=== PATIENT | female | born 1940 | race Caucasian/White ===

== ENCOUNTER → 2016-10-07 | Outpatient (CLI) | payer MEDICARE, BC, OTHER ==
--- NOTE | 2016-10-07 16:05 | REPMRS ---
Patient History The patient states she had a clinical breast exam in 09/2016. Patient is postmenopausal. Family history of colorectal cancer in maternal cousin at age 50 or over. Took hormonal contraceptives for 4 years. Taking unspecified hormones for 12 years. Digital Woman Screen Mammo: October 07, 2016 - Exam #: [id number] Bilateral CC and MLO view(s) were taken. Technologist: Rosaline Bowers, Technologist Prior study comparison: October 06, 2015, digital woman screen mammo performed at [email or web address]. September 16, 2014, digital woman screen mammo performed at [email or web address]. FINDINGS: There are scattered fibroglandular densities. There has been no change in the appearance of the mammogram from the prior studies. There is a mild amount of residual fibroglandular tissue which is fairly symmetric. There is no interval development of dominant mass, architectural distortion, or clustered microcalcification suggestive of malignancy. ASSESSMENT: BI-RADS/ACR category 1 mammogram. Negative. Recommendation Routine screening mammogram in 1 year (for women over age 40). This mammogram was interpreted with the aid of an FDA-approved computer-aided dectection system. Electronically Signed By: Arsenio Cavanaugh MD 10/07/16 [id number]
== END ==
LOC: M WHC 12:51
PROVIDERS: ATTEND Obstetrics & Gynecology
DX: Z12.31 Encounter for screening mammogram for malignant neoplasm of breast (principal); Z78.0 Asymptomatic menopausal state; Z92.0 Personal history of contraception

== ENCOUNTER → 2017-10-03 | Outpatient (REF) | payer MEDICARE, OTHER ==
[2017-10-03 11:52] LABS: HEMATOCRIT 37.7 % (36.0-47.0); HEMOGLOBIN 12.3 g/dl (12.0-15.5); MEAN CORPUSCULAR HEMOGLOBIN 31.1 pg (27.0-33.0); MEAN CORPUSCULAR HGB CONC 32.6 g/dl (32.0-36.5); MEAN CORPUSCULAR VOLUME 95.2 fl (80.0-96.0); PLATELET COUNT, AUTOMATED 301 10^3/uL (150-450); RED BLOOD COUNT 3.96 10^6/uL (4.00-5.40); RED CELL DISTRIBUTION WIDTH 12.6 % (11.5-14.5); WHITE BLOOD COUNT 6.5 10^3/uL (4.0-10.0)
[2017-10-03 12:15] LABS: TOTAL 25(OH) VITAMIN D 43.7 NG/ML (30.0-100.0)
[2017-10-03 12:21] LABS: ALBUMIN 3.7 GM/DL (3.2-5.2); ALBUMIN/GLOBULIN RATIO 1.09 (1.00-1.93); ALKALINE PHOSPHATASE 78 U/L (45-117); ALT/SGPT 21 U/L (12-78); ANION GAP 8 MEQ/L (8-16); AST/SGOT 21 U/L (7-37); BILIRUBIN,TOTAL 0.4 MG/DL (0.2-1.0); BLOOD UREA NITROGEN 15 MG/DL (7-18); CALCIUM LEVEL 8.7 MG/DL (8.8-10.2); CARBON DIOXIDE LEVEL 27 MEQ/L (21-32); CHLORIDE LEVEL 106 MEQ/L (98-107); CREATININE FOR GFR 0.72 MG/DL (0.55-1.30); FREE T4 1.03 NG/DL (0.76-1.46); GLOMERULAR FILTRATION RATE > 60.0 (>39); GLUCOSE, FASTING 84 MG/DL (70-100); SODIUM LEVEL 141 MEQ/L (136-145); THYROID STIMULATING HORMONE 0.973 uIU/ML (0.358-3.740); TOTAL PROTEIN 7.1 GM/DL (6.4-8.2)
== END ==
LOC: M SFHCCLAY 08:38
DX: I47.1 Supraventricular tachycardia (principal); K21.9 Gastro-esophageal reflux disease without esophagitis; D64.9 Anemia, unspecified; M81.0 Age-related osteoporosis without current pathological fracture
CPT/HCPCS: 84443

== ENCOUNTER → 2017-10-13 | Outpatient (CLI) | payer MEDICARE, BC | LOC: M WHC 11:49 | DX: Z12.31 Encounter for screening mammogram for malignant neoplasm of breast (principal); Z78.0 Asymptomatic menopausal state; Z79.890 Hormone replacement therapy; Z92.0 Personal history of contraception | CPT/HCPCS: 77067 ==

== ENCOUNTER → 2018-11-25 | Outpatient (REF) | payer MEDICARE, OTHER ==
[2018-11-25 11:30] LABS: IONIZED CALCIUM 4.6 MG/DL (4.5-5.3)
[2018-11-25 12:05] LABS: ALBUMIN 3.7 GM/DL (3.2-5.2); ALT/SGPT 24 U/L (12-78); BILIRUBIN,TOTAL 0.5 MG/DL (0.2-1.0); BLOOD UREA NITROGEN 16 MG/DL (7-18); CALCIUM LEVEL 8.8 MG/DL (8.8-10.2); CARBON DIOXIDE LEVEL 28 MEQ/L (21-32); CHLORIDE LEVEL 106 MEQ/L (98-107); CREATININE FOR GFR 0.72 MG/DL (0.55-1.30); FREE T4 0.97 NG/DL (0.76-1.46); GLOMERULAR FILTRATION RATE > 60.0 (>39); GLUCOSE, FASTING 97 MG/DL (70-100); POTASSIUM SERUM 4.3 MEQ/L (3.5-5.1); PTH INTACT 61.4 PG/ML (18.5-88.0); SODIUM LEVEL 139 MEQ/L (136-145); TOTAL PROTEIN 7.1 GM/DL (6.4-8.2)
[2018-11-26 12:12] LABS: ALBUMIN 4.39 GM/DL (3.29-5.55); ALBUMIN % 61.8 % (55.8-66.1); ALPHA-1-GLOBULIN % 3.5 % (2.9-4.9); ALPHA-1-GLOBULINS 0.25 GM/DL (0.17-0.41); ALPHA-2-GLOBULINS 0.81 GM/DL (0.42-0.99); ALPHA-2-GLOBULINS % 11.4 % (7.1-11.8); BETA-1-GLOBULINS 0.43 GM/DL (0.28-0.60); BETA-1-GLOBULINS % 6.1 % (4.7-7.2); BETA-2-GLOBULINS 0.29 GM/DL (0.19-0.55); BETA-2-GLOBULINS % 4.1 % (3.2-6.5); GAMMA GLOBULIN % 13.1 % (11.1-18.8); GAMMA GLOBULINS 0.93 GM/DL (0.65-1.58)
== END ==
LOC: M SFHCCLAY 07:58
PROVIDERS: ATTEND Family Medicine
DX: M81.0 Age-related osteoporosis without current pathological fracture (principal); Z79.899 Other long term (current) drug therapy

== ENCOUNTER → 2019-01-13 | Outpatient (REF) | payer MEDICARE, OTHER ==
[2019-01-14 12:02] LABS: BLOOD UREA NITROGEN 16 MG/DL (7-18); CALCIUM LEVEL 9.1 MG/DL (8.8-10.2); CARBON DIOXIDE LEVEL 27 MEQ/L (21-32); CHLORIDE LEVEL 106 MEQ/L (98-107); CREATININE FOR GFR 0.78 MG/DL (0.55-1.30); GLOMERULAR FILTRATION RATE > 60.0 (>39); GLUCOSE, FASTING 108 MG/DL (70-100); POTASSIUM SERUM 4.1 MEQ/L (3.5-5.1); SODIUM LEVEL 140 MEQ/L (136-145)
[2019-01-14 12:03] LABS: BASO # 0.1 10^3/uL (0.0-0.2); BASO % 0.7 % (0.0-1.0); EOS # 0.1 10^3/uL (0.0-0.50); EOS % 1.9 % (0.0-3.0); HEMATOCRIT 37.9 % (36.0-47.0); HEMOGLOBIN 12.7 g/dl (12.0-15.5); LYMPH # 2.4 10^3/uL (1.5-4.5); LYMPH % 35.4 % (24.0-44.0); MEAN CORPUSCULAR HEMOGLOBIN 32.6 pg (27.0-33.0); MEAN CORPUSCULAR HGB CONC 33.5 g/dl (32.0-36.5); MEAN CORPUSCULAR VOLUME 97.2 fl (80.0-96.0); MONO # 0.4 10^3/uL (0.0-0.8); MONO % 6.4 % (0.0-5.0); NEUTROPHILS # 3.8 10^3/uL (1.8-7.7); NEUTROPHILS % 55.2 % (36.0-66.0); PLATELET COUNT, AUTOMATED 276 10^3/uL (150-450); WHITE BLOOD COUNT 6.9 10^3/uL (4.0-10.0)
== END ==
LOC: M LABDRAWC 11:13
PROVIDERS: ATTEND Internal Medicine Cardiovascular Disease
DX: I47.1 Supraventricular tachycardia (principal); Z95.0 Presence of cardiac pacemaker

== ENCOUNTER → 2019-10-26 | Outpatient (REF) | payer MEDICARE, OTHER ==
[2019-10-26 18:53] LABS: HEMATOCRIT 38.5 % (36.0-47.0); HEMOGLOBIN 12.5 g/dl (12.0-15.5); MEAN CORPUSCULAR HEMOGLOBIN 31.2 pg (27.0-33.0); MEAN CORPUSCULAR HGB CONC 32.5 g/dl (32.0-36.5); PLATELET COUNT, AUTOMATED 257 10^3/uL (150-450); RED BLOOD COUNT 4.01 10^6/uL (4.00-5.40); WHITE BLOOD COUNT 7.1 10^3/uL (4.0-10.0)
[2019-10-26 19:23] LABS: ALBUMIN 3.9 GM/DL (3.2-5.2); ALT/SGPT 28 U/L (12-78); BILIRUBIN,TOTAL 0.4 MG/DL (0.2-1.0); BLOOD UREA NITROGEN 13 MG/DL (7-18); CALCIUM LEVEL 8.7 MG/DL (8.8-10.2); CARBON DIOXIDE LEVEL 26 MEQ/L (21-32); CHLORIDE LEVEL 107 MEQ/L (98-107); CHOLESTEROL LEVEL 232 MG/DL (<200); CHOLESTEROL RISK RATIO 3.362 (<5); CREATININE FOR GFR 0.73 MG/DL (0.55-1.30); GLOMERULAR FILTRATION RATE > 60.0 (>39); GLUCOSE, FASTING 98 MG/DL (70-100); HDL CHOLESTEROL 69 MG/DL (>40); LDL CHOLESTEROL 137 MG/DL (<100); NON-HDL-C 163 MG/DL; POTASSIUM SERUM 4.1 MEQ/L (3.5-5.1); SODIUM LEVEL 143 MEQ/L (136-145); THYROID STIMULATING HORMONE 0.909 uIU/ML (0.358-3.740); TOTAL PROTEIN 7.1 GM/DL (6.4-8.2); TRIGLYCERIDES LEVEL 131 MG/DL (<150)
== END ==
LOC: M SFHCCLAY 08:50
PROVIDERS: ATTEND Family Medicine
DX: M81.0 Age-related osteoporosis without current pathological fracture (principal); K21.9 Gastro-esophageal reflux disease without esophagitis; I47.1 Supraventricular tachycardia; D64.9 Anemia, unspecified; E78.00 Pure hypercholesterolemia, unspecified

== ENCOUNTER → 2019-11-05 | Outpatient (CLI) | payer MEDICARE, BC ==
--- NOTE | 2019-11-05 17:00 | REPMRS ---
Patient History The patient states she had a clinical breast exam in October 2019.The patient states she had a clinical breast exam in November 2019.Family history of colorectal cancer at age 50 or over in maternal cousin. Took hormonal contraceptives for 4 years. Taking unspecified hormones for 13 years. 3D TOMOSYNTHESIS WAS PERFORMED. [facility] lifetime risk for breast cancer is 3.0%. VOLPARA DENSITY C. Digital Woman Screen Mammo: November 05, 2019 - Exam #: [id number] Bilateral CC and MLO view(s) were taken. Technologist: Evy Watts, Technologist Prior study comparison: October 19, 2018, bilateral digital mammo screening bilat, performed at [facility]. October 13, 2017, digital woman screen mammo performed at [facility]. FINDINGS: The breast tissue is heterogeneously dense. This may lower the sensitivity of mammography. There has been no change in the appearance of the mammogram from the prior studies. There is a moderate amount of residual fibroglandular tissue which is fairly symmetric. There is no interval development of dominant mass, areas of architectural distortion, or clustered microcalcification typical of malignancy. Assessment: BI-RADS/ACR category 1 mammogram. Negative Mammogram. Recommendation Routine screening mammogram in 1 year (for women over age 40). This mammogram was interpreted with the aid of an FDA-approved computer-aided dectection system. Electronically Signed By: Arsenio Cavanaugh MD 11/05/19 [id number]
== END ==
LOC: M WHC 14:19
PROVIDERS: ATTEND Obstetrics & Gynecology
DX: Z12.31 Encounter for screening mammogram for malignant neoplasm of breast (principal)

== ENCOUNTER → 2020-02-10 | Outpatient (CLI) | payer MEDICARE, BC, OTHER | LOC: M LABSMTC 11:47 | PROVIDERS: ATTEND Family Medicine | DX: Z20.828 Contact with and (suspected) exposure to other viral communicable diseases (principal) | CPT/HCPCS: C9803; U0003 ==

== ENCOUNTER → 2020-11-15 | Outpatient (REF) | payer MEDICARE, OTHER ==
[2020-11-15 11:55] LABS: HEMATOCRIT 40.9 % (36.0-47.0); HEMOGLOBIN 13.1 g/dl (12.0-15.5); MEAN CORPUSCULAR HEMOGLOBIN 30.9 pg (27.0-33.0); MEAN CORPUSCULAR VOLUME 96.5 fl (80.0-96.0); PLATELET COUNT, AUTOMATED 264 10^3/uL (150-450); RED BLOOD COUNT 4.24 10^6/uL (4.00-5.40)
[2020-11-15 12:53] LABS: ALT/SGPT 19 U/L (12-78); BILIRUBIN,TOTAL 0.4 MG/DL (0.2-1.0); BLOOD UREA NITROGEN 14 MG/DL (7-18); CALCIUM LEVEL 8.6 MG/DL (8.8-10.2); CARBON DIOXIDE LEVEL 28 MEQ/L (21-32); CHLORIDE LEVEL 108 MEQ/L (98-107); CREATININE FOR GFR 0.64 MG/DL (0.55-1.30); FREE T4 1.04 NG/DL (0.76-1.46); GLOMERULAR FILTRATION RATE > 60.0 (>39); GLUCOSE, FASTING 91 MG/DL (70-100); IRON (FE) 81 UG/DL (50-170); PERCENT SATURATION 20.7 % (13.2-45.0); POTASSIUM SERUM 3.9 MEQ/L (3.5-5.1); PTH INTACT 58.9 PG/ML (18.5-88.0); SODIUM LEVEL 140 MEQ/L (136-145); TOTAL IRON BINDING CAPACITY 391 UG/DL (250-450); TOTAL PROTEIN 7.3 GM/DL (6.4-8.2)
== END ==
LOC: M SFHCCLAY 09:01
PROVIDERS: ATTEND Family Medicine
DX: M81.0 Age-related osteoporosis without current pathological fracture (principal); D64.9 Anemia, unspecified; K21.9 Gastro-esophageal reflux disease without esophagitis; I47.1 Supraventricular tachycardia

== ENCOUNTER → 2021-01-15 | Outpatient (CLI) | payer MEDICARE, BC ==
--- NOTE | 2021-01-15 10:46 | REPMRS ---
Patient History The patient states she had a clinical breast exam in November 2020. Patient is postmenopausal. Family history of colorectal cancer at age 50 or over in maternal cousin. Took hormonal contraceptives for 4 years. Taking estrogen for 20 years. No breast complaints today Patient signed the MRS sheet 1st covid vaccine 07/02/20-right arm-Pfizer 2nd covid vaccine 07/23/20-left arm Patient states she has lost at least 10lbs since her last mammo [facility] on PACS Patient Identification Verified Digital Woman Screen Mammo: January 15, 2021 - Exam #: [id number] Bilateral CC and MLO view(s) were taken. Technologist: Selma Enciso, Technologist Prior study comparison: November 05, 2019, bilateral digital woman screen mammo performed at [facility]. October 19, 2018, bilateral digital mammo screening bilat, performed at [facility]. FINDINGS: There are scattered fibroglandular densities. Screening. Digital screening (2D) mammography was performed bilaterally in the CC and MLO projections. Additionally, breast tomosynthesis (3D mammography) was performed bilaterally in the CC and MLO projections. Todays exam was compared to the prior exam/exams. By history, the patient has no complaints of a palpable breast abnormality or other significant breast complaints. The breasts are unchanged in size and shape. There are no flory-soft tissue densities or spiculated masses. There is no internal architectural distortion. Once again, stable benign appearing calcifications are seen.There are no suspicious flory-calcific clusters. Skin thickening or nipple retraction is not present. IMPRESSION: BI-RADS Category 2- Benign Findings. There is no evidence of malignant alteration of the breasts. Followup examination recommended in one year. The Volpara volumetric breast density category is B, there are scattered areas of fibroglandular densities. This mammogram was read with the assistance of [employer],an FDA approved computer aided detection system for mammography. The lifetime Tyrer-Cuzick score is 2.6 % Negative x-ray reports should not delay surgical consultation if a dominant or clinically suspicious mass is present. Not all breast cancers can be identified by mammography. Therefore, we recommend that you continue to perform regular breast self-examination and physical examination and then promptly contact your physician of any concerns or changes. Adenosis and dense breasts may obscure an underlying neoplasm. Assessment: BI-RADS/ACR category 2 mammogram. Benign Findings. Recommendation Routine screening mammogram of both breasts in 1 year. Electronically Signed By: Juan Yap DO 01/15/21 [id number]
== END ==
LOC: M WHC 09:22
PROVIDERS: ATTEND Obstetrics & Gynecology
DX: Z12.31 Encounter for screening mammogram for malignant neoplasm of breast (principal); Z92.3 Personal history of irradiation

== ENCOUNTER → 2021-03-06 | Outpatient (REF) | payer MEDICARE, OTHER ==
[2021-03-06 14:39] LABS: HEMATOCRIT 38.9 % (36.0-47.0); HEMOGLOBIN 12.6 g/dl (12.0-15.5); MEAN CORPUSCULAR HEMOGLOBIN 30.9 pg (27.0-33.0); MEAN CORPUSCULAR HGB CONC 32.4 g/dl (32.0-36.5); MEAN CORPUSCULAR VOLUME 95.3 fl (80.0-96.0); PLATELET COUNT, AUTOMATED 238 10^3/uL (150-450); RED BLOOD COUNT 4.08 10^6/uL (4.00-5.40); WHITE BLOOD COUNT 5.2 10^3/uL (4.0-10.0)
[2021-03-06 16:54] LABS: BLOOD UREA NITROGEN 11 MG/DL (7-18); CALCIUM LEVEL 9.3 MG/DL (8.8-10.2); CARBON DIOXIDE LEVEL 27 MEQ/L (21-32); CHLORIDE LEVEL 108 MEQ/L (98-107); CREATININE FOR GFR 0.66 MG/DL (0.55-1.30); GLOMERULAR FILTRATION RATE > 60.0 (>32); GLUCOSE, FASTING 94 MG/DL (70-100); LDH LACTATE DEHYDROGENASE 181 U/L (84-246); POTASSIUM SERUM 4.1 MEQ/L (3.5-5.1); SODIUM LEVEL 141 MEQ/L (136-145)
[2021-03-06 17:01] LABS: TOTAL 25(OH) VITAMIN D 45.5 NG/ML (30.0-100.0); VITAMIN B12 LEVEL 515 PG/ML (247-911)
[2021-03-06 17:02] LABS: FOLATE 19.3 NG/ML (>5.4)
== END ==
LOC: M SFHCCLAY 10:08
PROVIDERS: ATTEND Family Medicine
DX: M81.0 Age-related osteoporosis without current pathological fracture (principal); K90.0 Celiac disease; K21.9 Gastro-esophageal reflux disease without esophagitis; K22.70 Barrett's esophagus without dysplasia; E83.51 Hypocalcemia; D75.89 Other specified diseases of blood and blood-forming organs; Z23 Encounter for immunization
CPT/HCPCS: 80048; 82306; 82607; 82746; 83615; 85027; 85046; 90471; 90715; G0463

== ENCOUNTER → 2021-09-19 | Outpatient (REF) | payer MEDICARE, OTHER ==
[2021-09-19 16:16] LABS: BASO # 0.1 10^3/uL (0.0-0.2); BASO % 1.1 % (0.0-1.0); EOS # 0.1 10^3/uL (0.0-0.5); EOS % 2.6 % (0.0-3.0); HEMATOCRIT 39.4 % (36.0-47.0); HEMOGLOBIN 12.9 g/dl (12.0-15.5); LYMPH # 1.9 10^3/uL (1.5-5.0); LYMPH % 36.5 % (24.0-44.0); MEAN CORPUSCULAR HEMOGLOBIN 31.5 pg (27.0-33.0); MEAN CORPUSCULAR HGB CONC 32.7 g/dl (32.0-36.5); MEAN CORPUSCULAR VOLUME 96.3 fl (80.0-96.0); MONO # 0.5 10^3/uL (0.0-0.8); MONO % 9.1 % (2.0-8.0); NEUTROPHILS # 2.7 10^3/uL (1.5-8.5); NEUTROPHILS % 50.5 % (36.0-66.0); PLATELET COUNT, AUTOMATED 264 10^3/uL (150-450); RED BLOOD COUNT 4.09 10^6/uL (4.00-5.40); WHITE BLOOD COUNT 5.3 10^3/uL (4.0-10.0)
[2021-09-19 16:37] LABS: ALBUMIN 4.3 GM/DL (3.2-5.2); ALT/SGPT 23 U/L (12-78); BILIRUBIN,TOTAL 0.4 MG/DL (0.2-1.0); BLOOD UREA NITROGEN 12 MG/DL (7-18); CALCIUM LEVEL 9.3 MG/DL (8.8-10.2); CARBON DIOXIDE LEVEL 27 MEQ/L (21-32); CHLORIDE LEVEL 109 MEQ/L (98-107); CHOLESTEROL LEVEL 232 MG/DL (<200); CHOLESTEROL RISK RATIO 3.012 (<5); CREATININE FOR GFR 0.68 MG/DL (0.55-1.30); GLOMERULAR FILTRATION RATE > 60.0 (>32); GLUCOSE, FASTING 105 MG/DL (70-100); HDL CHOLESTEROL 77 MG/DL (>40); LDL CHOLESTEROL 130 MG/DL (<100); NON-HDL-C 155 MG/DL; POTASSIUM SERUM 4.2 MEQ/L (3.5-5.1); SODIUM LEVEL 140 MEQ/L (136-145); TOTAL PROTEIN 7.2 GM/DL (6.4-8.2); TRIGLYCERIDES LEVEL 124 MG/DL (<150)
[2021-09-19 16:45] LABS: PTH INTACT 43.6 PG/ML (18.5-88.0); TOTAL 25(OH) VITAMIN D 41.5 NG/ML (30.0-100.0)
[2021-09-19 16:46] LABS: FOLATE 17.6 NG/ML (>5.4)
[2021-09-25 18:13] LABS: VITAMIN B12 LEVEL 541 PG/ML (247-911)
== END ==
LOC: M SFHCCLAY 09:46
PROVIDERS: ATTEND Family Medicine
DX: M54.31 Sciatica, right side (principal); K21.00 Gastro-esophageal reflux disease with esophagitis, without bleeding; E78.00 Pure hypercholesterolemia, unspecified; D75.89 Other specified diseases of blood and blood-forming organs; M81.0 Age-related osteoporosis without current pathological fracture

== ENCOUNTER 2021-11-27 13:00 | Outpatient (RCR) | payer MEDICARE, BC, OTHER | END 2021-11-29 | LOC: M PT 13:00 | PROVIDERS: ATTEND Orthopaedic Surgery | DX: M54.50 Low back pain, unspecified (principal); M25.551 Pain in right hip ==

== ENCOUNTER → 2022-01-16 | Outpatient (CLI) | payer MEDICARE, BC, OTHER | LOC: M WHC 10:10 | PROVIDERS: ATTEND Obstetrics & Gynecology | DX: Z12.31 Encounter for screening mammogram for malignant neoplasm of breast (principal) ==

== ENCOUNTER → 2022-04-18 | Outpatient (REF) | payer MEDICARE, OTHER ==
[2022-04-18 21:34] LABS: FREE T4 1.26 NG/DL (0.89-1.76); THYROID STIMULATING HORMONE 0.819 uIU/ML (0.55-4.78)
== END ==
LOC: M SFHCCLAY 11:08
PROVIDERS: ATTEND Family Medicine
DX: R41.89 Other symptoms and signs involving cognitive functions and awareness (principal); E07.9 Disorder of thyroid, unspecified

== ENCOUNTER → 2022-04-30 | Outpatient (CLI) | payer MEDICARE, BC, OTHER | LOC: M RAD 10:02 | PROVIDERS: ATTEND Family Medicine | DX: G31.9 Degenerative disease of nervous system, unspecified (principal); R41.89 Other symptoms and signs involving cognitive functions and awareness ==

== ENCOUNTER → 2022-10-01 | Outpatient (REF) | payer MEDICARE, OTHER ==
[2022-10-01 14:25] LABS: CHOLESTEROL RISK RATIO 2.66 (<5); HDL CHOLESTEROL 76.1 MG/DL (>40); LDL CHOLESTEROL 106.7 MG/DL (<100); NON-HDL-C 126.9 MG/DL
[2022-10-01 14:29] LABS: FREE T4 1.11 NG/DL (0.89-1.76); THYROID STIMULATING HORMONE 1.188 uIU/ML (0.55-4.78)
== END ==
LOC: M SFHCCLAY 11:52
PROVIDERS: ATTEND Family Medicine
DX: R41.89 Other symptoms and signs involving cognitive functions and awareness (principal); E78.00 Pure hypercholesterolemia, unspecified

== ENCOUNTER → 2022-10-01 | Outpatient (REF) | payer MEDICARE, BC, OTHER ==
[2022-10-01 12:12] LABS: BASO # 0.1 10^3/uL (0.0-0.2); BASO % 0.9 % (0.0-1.0); EOS # 0.2 10^3/uL (0.0-0.5); EOS % 3.8 % (0.0-3.0); HEMATOCRIT 40.2 % (36.0-47.0); HEMOGLOBIN 12.8 g/dl (12.0-15.5); LYMPH # 2.2 10^3/uL (1.5-5.0); LYMPH % 38.1 % (24.0-44.0); MEAN CORPUSCULAR HEMOGLOBIN 30.7 pg (27.0-33.0); MEAN CORPUSCULAR HGB CONC 31.8 g/dl (32.0-36.5); MEAN CORPUSCULAR VOLUME 96.4 fl (80.0-96.0); MONO # 0.5 10^3/uL (0.0-0.8); NEUTROPHILS # 2.8 10^3/uL (1.5-8.5); NEUTROPHILS % 48.7 % (36.0-66.0); PLATELET COUNT, AUTOMATED 259 10^3/uL (150-450); RED BLOOD COUNT 4.17 10^6/uL (4.00-5.40); WHITE BLOOD COUNT 5.7 10^3/uL (4.0-10.0)
[2022-10-01 12:51] LABS: BLOOD UREA NITROGEN 15 MG/DL (9-23); CALCIUM LEVEL 9.1 MG/DL (8.3-10.6); CARBON DIOXIDE LEVEL 30 MMOL/L (20-31); CHLORIDE LEVEL 104 MMOL/L (98-107); GLOMERULAR FILTRATION RATE > 60.0 (>32); GLUCOSE, FASTING 98 MG/DL (74-106); POTASSIUM SERUM 3.8 MMOL/L (3.5-5.1); SODIUM LEVEL 139 MMOL/L (136-145)
== END ==
LOC: M LABDRAWC 11:23
PROVIDERS: ATTEND Internal Medicine Cardiovascular Disease
DX: I45.89 Other specified conduction disorders (principal)

== ENCOUNTER → 2022-12-12 | Outpatient (REF) | payer MEDICARE, OTHER | LOC: M SFHCWAGY 17:10 | PROVIDERS: ATTEND Nurse Practitioner Family | DX: N39.0 Urinary tract infection, site not specified (principal) ==

== ENCOUNTER → 2023-01-17 | Outpatient (CLI) | payer MEDICARE, BC, OTHER | LOC: M WHC 10:15 | PROVIDERS: ATTEND Nurse Practitioner Family | DX: Z12.31 Encounter for screening mammogram for malignant neoplasm of breast (principal) ==

== ENCOUNTER → 2023-10-22 | Outpatient (REF) | payer MEDICARE, BC ==
[2023-10-22 14:45] LABS: HEMOGLOBIN 12.7 g/dl (12.0-15.5); MEAN CORPUSCULAR HEMOGLOBIN 31.1 pg (27.0-33.0); MEAN CORPUSCULAR HGB CONC 32.6 g/dl (32.0-36.5); MEAN CORPUSCULAR VOLUME 95.4 fl (80.0-96.0); PLATELET COUNT, AUTOMATED 258 10^3/uL (150-450); RED BLOOD COUNT 4.09 10^6/uL (4.00-5.40); WHITE BLOOD COUNT 5.3 10^3/uL (4.0-10.0)
[2023-10-22 17:50] LABS: ALKALINE PHOSPHATASE 75 U/L (46-116); ALT/SGPT 18 U/L (7.0-40); AST/SGOT 20 U/L (<34); BILIRUBIN,TOTAL 0.6 MG/DL (0.3-1.2); BLOOD UREA NITROGEN 13 MG/DL (9-23); CALCIUM LEVEL 9.3 MG/DL (8.3-10.6); CARBON DIOXIDE LEVEL 28 MMOL/L (20-31); CHLORIDE LEVEL 107 MMOL/L (98-107); CHOLESTEROL LEVEL 219 MG/DL (<200); CREATININE FOR GFR 0.84 MG/DL (0.55-1.30); GLOMERULAR FILTRATION RATE > 60.0 (>32); GLUCOSE, FASTING 93 MG/DL (74-106); HDL CHOLESTEROL 68.4 MG/DL (>40); LDL CHOLESTEROL 132.6 MG/DL (<100); NON-HDL-C 150.6 MG/DL; POTASSIUM SERUM 4.5 MMOL/L (3.5-5.1); SODIUM LEVEL 142 MMOL/L (136-145); TOTAL PROTEIN 6.7 G/DL (5.7-8.2); TRIGLYCERIDES LEVEL 90 MG/DL (<150)
[2023-10-22 17:51] LABS: THYROID STIMULATING HORMONE 1.096 uIU/ML (0.55-4.78)
== END ==
LOC: M LABDRWAD 13:23
PROVIDERS: ATTEND Internal Medicine Cardiovascular Disease
DX: R03.0 Elevated blood-pressure reading, without diagnosis of hypertension (principal); R00.2 Palpitations; E78.5 Hyperlipidemia, unspecified

== ENCOUNTER → 2023-10-22 | Outpatient (REF) | payer MEDICARE, BC ==
[2023-10-22 14:43] LABS: HEMATOCRIT 39.1 % (36.0-47.0); HEMOGLOBIN 12.8 g/dl (12.0-15.5); MEAN CORPUSCULAR HEMOGLOBIN 31.2 pg (27.0-33.0); MEAN CORPUSCULAR HGB CONC 32.7 g/dl (32.0-36.5); MEAN CORPUSCULAR VOLUME 95.4 fl (80.0-96.0); PLATELET COUNT, AUTOMATED 260 10^3/uL (150-450); WHITE BLOOD COUNT 5.2 10^3/uL (4.0-10.0)
[2023-10-22 15:00] LABS: THYROID STIMULATING HORMONE 1.107 uIU/ML (0.55-4.78)
[2023-10-22 15:01] LABS: TOTAL 25(OH) VITAMIN D 57.5 NG/ML (20.0-100.0)
[2023-10-22 15:02] LABS: ALKALINE PHOSPHATASE 76 U/L (46-116); ALT/SGPT 17 U/L (7.0-40); AST/SGOT 21 U/L (<34); BILIRUBIN,TOTAL 0.6 MG/DL (0.3-1.2); BLOOD UREA NITROGEN 13 MG/DL (9-23); CALCIUM LEVEL 9.2 MG/DL (8.3-10.6); CARBON DIOXIDE LEVEL 28 MMOL/L (20-31); CHLORIDE LEVEL 106 MMOL/L (98-107); CHOLESTEROL LEVEL 223 MG/DL (<200); CREATININE FOR GFR 0.83 MG/DL (0.55-1.30); GLOMERULAR FILTRATION RATE > 60.0 (>32); GLUCOSE, FASTING 93 MG/DL (74-106); HDL CHOLESTEROL 69.5 MG/DL (>40); LDL CHOLESTEROL 135.5 MG/DL (<100); NON-HDL-C 153.5 MG/DL; POTASSIUM SERUM 4.4 MMOL/L (3.5-5.1); SODIUM LEVEL 140 MMOL/L (136-145); TOTAL PROTEIN 6.7 G/DL (5.7-8.2); TRIGLYCERIDES LEVEL 90 MG/DL (<150); VITAMIN B12 LEVEL 482 PG/ML (211-911)
== END ==
LOC: M SFHCADAM 09:48
PROVIDERS: ATTEND Family Medicine
DX: M81.0 Age-related osteoporosis without current pathological fracture (principal); K90.0 Celiac disease; E78.00 Pure hypercholesterolemia, unspecified; D75.89 Other specified diseases of blood and blood-forming organs; R03.0 Elevated blood-pressure reading, without diagnosis of hypertension; R00.2 Palpitations; E78.5 Hyperlipidemia, unspecified

== ENCOUNTER → 2023-11-26 | Outpatient (CLI) | payer MEDICARE, BC | LOC: M CLY 09:42 | PROVIDERS: ATTEND Physician Assistant | DX: S39.92XA Unspecified injury of lower back, initial encounter (principal); W19.XXXA Unspecified fall, initial encounter; Y92.9 Unspecified place or not applicable; Y93.9 Activity, unspecified; Y99.9 Unspecified external cause status ==

== ENCOUNTER → 2024-01-07 | Outpatient (REF) | payer MEDICARE, BC | LOC: M SFHCWAGY 15:14 | PROVIDERS: ATTEND Nurse Practitioner Family | DX: R39.15 Urgency of urination (principal) ==

== ENCOUNTER → 2024-01-20 | Outpatient (REF) | payer MEDICARE, OTHER ==
[2024-01-20 17:21] LABS: BLOOD UREA NITROGEN 14 MG/DL (9-23); CARBON DIOXIDE LEVEL 28 MMOL/L (20-31); CHLORIDE LEVEL 106 MMOL/L (98-107); CREATININE FOR GFR 0.82 MG/DL (0.55-1.30); GLOMERULAR FILTRATION RATE > 60.0 (>32); GLUCOSE, FASTING 99 MG/DL (74-106); SODIUM LEVEL 139 MMOL/L (136-145)
== END ==
LOC: M LABDRAWC 16:36
PROVIDERS: ATTEND Internal Medicine Cardiovascular Disease
DX: I50.9 Heart failure, unspecified (principal); R06.02 Shortness of breath

== ENCOUNTER → 2024-01-28 | Outpatient (REF) | payer MEDICARE, BC | LOC: M SFHCWAGY 14:51 | PROVIDERS: ATTEND Nurse Practitioner Family | DX: R30.0 Dysuria (principal) ==

== ENCOUNTER → 2024-01-28 | Outpatient (CLI) | payer MEDICARE, BC | LOC: M WHC 10:22 | PROVIDERS: ATTEND Nurse Practitioner Family | DX: Z12.31 Encounter for screening mammogram for malignant neoplasm of breast (principal) ==

== ENCOUNTER → 2024-05-05 | Outpatient (REF) | payer MEDICARE, OTHER | LOC: M SFHCWAGY 12:34 | PROVIDERS: ATTEND Nurse Practitioner Family | DX: N73.9 Female pelvic inflammatory disease, unspecified (principal) ==

== ENCOUNTER → 2024-08-02 | Outpatient (CLI) | payer MEDICARE, BC | LOC: M RAD 13:06 | PROVIDERS: ATTEND Nurse Practitioner Family | DX: N95.0 Postmenopausal bleeding (principal) ==

== ENCOUNTER → 2024-10-12 | Outpatient (REF) | payer MEDICARE, BC ==
[2024-10-12 12:47] LABS: HEMATOCRIT 37.5 % (36.0-47.0); MEAN CORPUSCULAR HEMOGLOBIN 30.2 pg (27.0-33.0); MEAN CORPUSCULAR VOLUME 94.2 fl (80.0-96.0); PLATELET COUNT, AUTOMATED 294 10^3/uL (150-450); RED BLOOD COUNT 3.98 10^6/uL (4.00-5.40); WHITE BLOOD COUNT 6.2 10^3/uL (4.0-10.0)
[2024-10-12 13:15] LABS: ALBUMIN 3.9 G/DL (3.2-5.2); BILIRUBIN,TOTAL 0.6 MG/DL (0.3-1.2); CALCIUM LEVEL 9.1 MG/DL (8.3-10.6); CHOLESTEROL RISK RATIO 3.64 (<5); CREATININE FOR GFR 0.75 MG/DL (0.55-1.30); LDL CHOLESTEROL 137.6 MG/DL (<100); POTASSIUM SERUM 4.2 MMOL/L (3.5-5.1); TOTAL PROTEIN 6.8 G/DL (5.7-8.2)
[2024-10-12 13:18] LABS: FERRITIN 38.2 NG/ML (7.3-270.7); FOLATE 12.77 NG/ML (>5.4); FREE T4 1.12 NG/DL (0.89-1.76); PERCENT SATURATION 23.5 % (13.2-45.0); THYROID STIMULATING HORMONE 0.894 uIU/ML (0.55-4.78)
== END ==
LOC: M SFHCCLAY 08:53
PROVIDERS: ATTEND Nurse Practitioner Family
DX: R41.3 Other amnesia (principal); Z95.0 Presence of cardiac pacemaker; R53.83 Other fatigue; R00.2 Palpitations; I95.1 Orthostatic hypotension; Z79.899 Other long term (current) drug therapy

== ENCOUNTER → 2024-11-30 | Outpatient (REF) | payer MEDICARE, BC ==
[2024-11-30 13:37] LABS: ALT/SGPT 11.0 U/L (7.0-40); AST/SGOT 23.0 U/L (<34); CALCIUM LEVEL 9.5 MG/DL (8.3-10.6); CARBON DIOXIDE LEVEL 30.0 MMOL/L (20-31); CHLORIDE LEVEL 102.0 MMOL/L (98-107); CREATININE FOR GFR 0.96 MG/DL (0.55-1.30); GLOMERULAR FILTRATION RATE 58.7 (>32); POTASSIUM SERUM 4.2 MMOL/L (3.5-5.1); SODIUM LEVEL 143.0 MMOL/L (136-145)
== END ==
LOC: M LABDRWAD 12:56
PROVIDERS: ATTEND Internal Medicine Cardiovascular Disease
DX: Z95.0 Presence of cardiac pacemaker (principal); R06.02 Shortness of breath

== ENCOUNTER → 2024-12-15 | Outpatient (CLI) | payer MEDICARE, BC | LOC: M PLAIMG 10:29 | PROVIDERS: ATTEND Nurse Practitioner Family | DX: R06.02 Shortness of breath (principal) ==

== ENCOUNTER → 2025-01-28 | Outpatient (CLI) | payer MEDICARE, BC | LOC: M PLALAB 09:52 | PROVIDERS: ATTEND Internal Medicine Cardiovascular Disease | DX: Z13.29 Encounter for screening for other suspected endocrine disorder (principal) ==

== ENCOUNTER → 2025-01-28 | Outpatient (CLI) | payer MEDICARE, BC | LOC: M WHC 09:49 | PROVIDERS: ATTEND Nurse Practitioner Family | DX: Z12.31 Encounter for screening mammogram for malignant neoplasm of breast (principal); Z13.29 Encounter for screening for other suspected endocrine disorder; Z79.899 Other long term (current) drug therapy ==

== ENCOUNTER → 2025-04-20 | Outpatient (REF) | payer MEDICARE, OTHER ==
[2025-04-20 17:34] LABS: ALT/SGPT 14.0 U/L (7.0-40); AST/SGOT 23.0 U/L (<34); CALCIUM LEVEL 9.3 MG/DL (8.3-10.6); CARBON DIOXIDE LEVEL 30.0 MMOL/L (20-31); CHLORIDE LEVEL 103.0 MMOL/L (98-107); CREATININE FOR GFR 0.89 MG/DL (0.55-1.30); GLOMERULAR FILTRATION RATE 63.9 (>32); POTASSIUM SERUM 4.5 MMOL/L (3.5-5.1); SODIUM LEVEL 141.0 MMOL/L (136-145)
== END ==
LOC: M LABDRAWC 16:50
PROVIDERS: ATTEND Internal Medicine Cardiovascular Disease
DX: I50.30 Unspecified diastolic (congestive) heart failure (principal); R03.0 Elevated blood-pressure reading, without diagnosis of hypertension

== ENCOUNTER → 2025-05-02 | Outpatient (REF) | payer MEDICARE, OTHER | LOC: M SFHCWAGY 16:51 | PROVIDERS: ATTEND Nurse Practitioner Family | DX: N89.8 Other specified noninflammatory disorders of vagina (principal) ==